=== PATIENT | male | born 1945 | race Caucasian/White ===

== ENCOUNTER 2020-07-23 18:57 | Outpatient (CLI) | payer MEDICARE | END 2020-07-23 18:58 | disposition critical access hospital (66) | LOC: EMS 18:57 | DX: R42 Dizziness and giddiness (principal); M54.5 Low back pain | CPT/HCPCS: A0425; A0427 ==

== ENCOUNTER 2020-07-23 19:38 | Emergency (ER) | payer MEDICARE ==
[2020-07-23] MEDS ORDERED: SODIUM CHLORIDE 0.9% 1,000 ML IV STA (19:50)
[2020-07-23 20:15] LABS: BASOPHILS % (AUTO) 0.6 %; EOSINOPHILS # (AUTO) 0.6 10^3/uL (0.0-0.7); EOSINOPHILS % (AUTO) 10.1 %; HGB - HEMOGLOBIN 10.2 g/dL (14.0-18.0); LYMPHOCYTES # (AUTO) 2.1 10^3/uL (1.5-3.5); LYMPHOCYTES % (AUTO) 33.1 %; MEAN CORPUSCULAR HEMOGLOBIN 30.2 pg (27.0-31.0); MEAN CORPUSCULAR HGB CONC 31.9 g/dL (32.0-36.0); MEAN CORPUSCULAR VOLUME 94.7 fL (80.0-94.0); MEAN PLATELET VOLUME 9.1 fL (7.4-11.4); MONOCYTES # (AUTO) 0.6 10^3/uL (0.0-1.0); MONOCYTES % (AUTO) 9.6 %; NEUTROPHILS # (AUTO) 2.9 10^3/uL (1.5-6.6); NEUTROPHILS % (AUTO) 46.4 %; PLT - PLATELET COUNT 207 10^3/uL (130-450); RED BLOOD COUNT 3.38 10^6/uL (4.70-6.10); RED CELL DISTRIBUTION WIDTH 13.9 % (12.0-15.0); WHITE BLOOD COUNT 6.2 x10^3/uL (4.8-10.8)
--- NOTE | 2020-07-23 20:19 | ED Physician Documentation ---
History of Present Illness - Stated complaint Stated Complaint: HYPOTENSIVE, DIZZY - Chief complaint Chief Complaint: Neuro - History obtained from History obtained from: Patient, EMS - History of Present Illness Timing: How many days ago (several) Pain level max: 0 Pain level now: 0 - Additonal information Additional information: 74-year-old male brought in by EMS today for hypotension and dizziness over the past few days. Worse with standing, better with laying down. He states he had an L1-L4 fusion at [facility] about a month ago. Since that time has had decreased oral intake. Not eating and drinking very much. He received 1 L of normal saline with EMS and feels much better. Blood pressure improved with EMS as well. Initial blood pressure was in the 90s systolic, now in the 120s. No chest pain. No shortness of breath. No fall. No fevers. Review of Systems Ten Systems: 10 systems reviewed and negative Constitutional: denies: Fever, Chills Cardiac: denies: Chest pain / pressure Respiratory: denies: Cough GI: denies: Nausea, Vomiting, Diarrhea : denies: Dysuria, Frequency, Hesitancy Skin: denies: Rash Musculoskeletal: denies: Neck pain, Back pain Neurologic: denies: Headache, Head injury PD PAST MEDICAL HISTORY - Past Medical History Past Medical History: Yes Cardiovascular: Hypertension, High cholesterol Psych: Depression - Present Medications Home Medications: Ambulatory Orders Medication Instructions Recorded Confirmed Albuterol Sulfate [Proair 2 puffs INH Q4H PRN 07/23/20 07/23/20 Digihaler] Cholecalciferol [Vitamin D3] 25 mcg PO DAILY 07/23/20 07/23/20 Ciclesonide [Alvesco] 2 puffs INH BID 07/23/20 07/23/20 Escitalopram Oxalate 10 mg PO DAILY 07/23/20 07/23/20 Fluticasone [Flonase] 2 spray INH DAILY 07/23/20 07/23/20 Hydrochlorothiazide 25 mg PO DAILY 07/23/20 07/23/20 Propranolol [Inderal] 10 mg PO TID PRN 07/23/20 07/23/20 Simvastatin [Zocor] 40 mg PO DAILY 07/23/20 07/23/20 atenoloL [Tenormin] 25 mg PO DAILY 07/23/20 07/23/20 lisinopriL [Lisinopril] 40 mg PO DAILY 07/23/20 07/23/20 - Allergies Allergies/Adverse Reactions: Allergies Allergy/AdvReac Type Severity Reaction Status Date / Time No Known Drug Allergies Allergy Verified 07/23/20 19:47 - Social History Does the pt smoke?: No Smoking Status: Never smoker PD ED PE NORMAL - Vitals Vital signs reviewed: Yes - General General: Alert and oriented X 3, No acute distress, Well developed/nourished - HEENT HEENT: PERRL, Other (dry lips and tongue) - Neck Neck: Supple, no meningeal sign - Cardiac Cardiac: RRR, Strong equal pulses - Respiratory Respiratory: No respiratory distress, Clear bilaterally - Abdomen Abdomen: Soft, Non tender, Non distended - Back Back: No spinal TTP - Derm Derm: Warm and dry - Extremities Extremities: No edema, No calf tenderness / cord - Neuro Neuro: Alert and oriented X 3, 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, No motor deficit, No sensory deficit, Normal speech - Psych Psych: Normal mood, Normal affect Results - Vitals Vitals: Vital Signs - 24 hr 07/23/20 07/23/20 19:48 20:53 Temperature 36.8 C 36.8 C Heart Rate 57 L 56 L Respiratory 19 15 Rate Blood Pressure 123/64 141/68 H O2 Saturation 100 99 Oxygen O2 Source Room air - EKG (time done) 2000 Rate: Rate (enter#) (2000) Rhythm: NSR [place]: Normal Intervals: Prolonged [place] QRS: Normal Ischemia: Normal ST segments, Q waves (III, aVF, V1-2) - Labs Labs: Laboratory Tests 07/23/20 07/23/20 07/23/20 20:00 20:00 20:00 WBC 6.2 RBC 3.38 L Hgb 10.2 L Hct 32.0 L MCV 94.7 H MCH 30.2 MCHC 31.9 L RDW 13.9 Plt Count 207 MPV 9.1 Neut # (Auto) 2.9 Lymph # (Auto) 2.1 [place] # (Auto) 0.6 Eos # (Auto) 0.6 Baso # (Auto) 0.0 Absolute Nucleated RBC 0.00 Nucleated RBC % 0.0 Sodium 137 Potassium 4.4 Chloride 103 Carbon Dioxide 23 Anion Gap 11.0 BUN 30 H Creatinine 1.2 Estimated GFR (MDRD) 60 L Glucose 88 Calcium 8.8 Total Bilirubin 0.4 AST 20 ALT 20 Alkaline Phosphatase 86 Troponin I High Sens 7.1 Total Protein 6.8 Albumin 3.9 Globulin 2.9 Albumin/Globulin Ratio 1.3 PD MEDICAL DECISION MAKING - ED course Complexity details: reviewed results, re-evaluated patient, considered differential, d/w patient ED course: Patient with what appears to be dehydration. Given IV fluids. Hypotension and dizziness resolved. Feels much better. No significant lab abnormalities. Patient and family counseled regarding signs and symptoms for which I believe and urgent re-evaluation would be necessary. Patient with good understanding of and agreement to plan and is comfortable going home at this time This document was made in part using voice recognition software. While efforts are made to proofread this document, sound alike and grammatical errors may occur. Departure - Departure Disposition: 01 Home, Self Care Clinical Impression: Dehydration Condition: Good Instructions: ED Dehydration Follow-Up: Provider,Other [Primary Care Provider] - Within 1 week Comments: You need to increase your water intake at home. Your testing does not show any other acute abnormalities. Return if you worsen.
[2020-07-23 20:33] LABS: ALBUMIN 3.9 g/dL (3.2-5.5); ALBUMIN/GLOBULIN RATIO 1.3 (1.0-2.2); BILIRUBIN,TOTAL 0.4 mg/dL (0.2-1.0); CALCIUM 8.8 mg/dL (8.5-10.3); CREATININE 1.2 mg/dL (0.6-1.2); POTASSIUM 4.4 mmol/L (3.5-5.0); TOTAL PROTEIN 6.8 g/dL (6.7-8.2)
[2020-07-23 20:54] VITALS: BP 141/68
== END 2020-07-23 21:09 | disposition home or self-care (01) ==
LOC: ED 19:38
DX: E86.0 Dehydration (principal); R42 Dizziness and giddiness; I10 Essential (primary) hypertension; Z98.1 Arthrodesis status
CPT/HCPCS: 36415; 80053; 84484; 85025; 93005; 96360; 99282

== ENCOUNTER 2022-02-09 12:35 | Outpatient (CLI) | payer MEDICARE ==
--- NOTE | 2022-02-09 14:10 | DEXA Report ---
PROCEDURE: Dexa Spine and/or Hip INDICATIONS: SCREENING FOR SPINAL SURGERY TECHNIQUE: Dual energy x-ray absorptiometry (DXA) was performed on a [employer] System. Regions measur ed are the AP Spine, femoral neck, and if needed forearm. COMPARISON: None. FINDINGS: Lumbar Spine: Spinal fusion hardware is present. Left Femoral Neck: Bone Mineral Density 1.172 g/cm/cm, T score 0.5, normal Left Hip: Bone Mineral Density 1.102 g/cm/cm,T score 0.2, normal Left forearm: Bone Mineral Density 1.081 g/cm/cm, T score 0.9, normal (T score greater or equal to -1.0: NORMAL) (T score from -1.1 to -2.4: OSTEOPENIA) (T score less than or equal to -2.5 to: OSTEOPOROSIS) Impression: Bone mineral density is within normal limits at the left hip and left forearm. Patients with diagnosis of osteoporosis or osteopenia should have regular bone mineral density assess ment. For those eligible for Medicare, routine testing is allowed once every 2 years. Testing frequ ency can be increased for patients who have rapidly progressing disease or for those who are receivin g medical therapy to restore bone mass. Reviewed by: Gary Milian MD on 02/09/2022 2:09 PM PST Approved by: Gary Milian MD on 02/09/2022 2:09 PM PST Station ID: [id number]
== END 2022-02-09 12:36 | disposition home or self-care (01) ==
LOC: DI 12:35
PROVIDERS: ATTEND Neurological Surgery
DX: Z01.818 Encounter for other preprocedural examination (principal); Z98.1 Arthrodesis status

== ENCOUNTER 2023-06-13 15:25 | Emergency (ER) | payer MEDICARE ==
[2023-06-13 16:42] LABS: BASOPHILS % (AUTO) 0.3 %; EOSINOPHILS # (AUTO) 0.1 10^3/uL (0.0-0.7); EOSINOPHILS % (AUTO) 1.4 %; HCT - HEMATOCRIT 43.6 % (42.0-52.0); HGB - HEMOGLOBIN 13.7 g/dL (14.0-18.0); LYMPHOCYTES # (AUTO) 0.9 10^3/uL (1.5-3.5); LYMPHOCYTES % (AUTO) 9.1 %; MEAN CORPUSCULAR HEMOGLOBIN 32.4 pg (27.0-31.0); MEAN CORPUSCULAR HGB CONC 31.4 g/dL (32.0-36.0); MEAN CORPUSCULAR VOLUME 103.1 fL (80.0-94.0); MEAN PLATELET VOLUME 9.4 fL (7.4-11.4); MONOCYTES # (AUTO) 1.2 10^3/uL (0.0-1.0); MONOCYTES % (AUTO) 11.7 %; NEUTROPHILS # (AUTO) 7.6 10^3/uL (1.5-6.6); NEUTROPHILS % (AUTO) 77.2 %; PLT - PLATELET COUNT 203 10^3/uL (130-450); RED BLOOD COUNT 4.23 10^6/uL (4.70-6.10); RED CELL DISTRIBUTION WIDTH 13.7 % (12.0-15.0); WHITE BLOOD COUNT 9.9 x10^3/uL (4.8-10.8)
--- NOTE | 2023-06-13 16:44 | XRAY Report ---
PROCEDURE: Chest 1V INDICATIONS: Chest pain TECHNIQUE: One view of the chest was acquired. COMPARISON: None. FINDINGS: Surgical changes and devices: Thoracolumbar spine hardware. Lungs and pleura: No pleural effusions or pneumothorax. Lungs are clear. Mediastinum: Mediastinal contours appear normal. Heart size is normal. Bones and chest wall: No suspicious bony lesions. Overlying soft tissues appear unremarkable. IMPRESSION: No acute cardiopulmonary process. Reviewed by: Alfredo Willoughby MD on 06/13/2023 4:43 PM PDT Approved by: Alfredo Willoughby MD on 06/13/2023 4:43 PM PDT Station ID: [id number]
[2023-06-13 16:59] LABS: ALBUMIN 4.2 g/dL (3.2-5.5); ALBUMIN/GLOBULIN RATIO 1.6 (1.0-2.2); BILIRUBIN,TOTAL 1.3 mg/dL (0.2-1.0); CALCIUM 9.1 mg/dL (8.5-10.3); CREATININE 1.4 mg/dL (0.6-1.3); PHOSPHORUS 3.9 mg/dL (2.5-5.0); POTASSIUM 4.8 mmol/L (3.5-4.5); TOTAL PROTEIN 6.8 g/dL (6.4-8.9)
[2023-06-13] MEDS: METOPROLOL 5 MG/5 ML VIAL IVP STA ×2 (17:33→19:00)
[2023-06-13] MEDS ORDERED: iohexoL-300 100 ML VIAL ONE (17:34)
[2023-06-13] MEDS: iohexoL-300 100 ML VIAL IVP ONE (18:21)
[2023-06-13] MEDS: SODIUM CHLORIDE 0.9% 1,000 ML IV ONE (19:00)
--- NOTE | 2023-06-13 19:02 | CT Report ---
PROCEDURE: Soft Tissue Neck W INDICATIONS: DIFFICULTY SWALLOWING, DIMINISHED VOICE CONTRAST: omni 300 100ml TECHNIQUE: After the administration of intravenous contrast, 3.0 mm axial sections acquired from the sella to th e aortic arch. Additional oblique axial 3.0 mm sections acquired through the pharynx. 3 mm thick co jossue reformats were generated. For radiation dose reduction, the following was used: automated exp osure control, adjustment of mA and/or kV according to patient size. COMPARISON: None. FINDINGS: Image quality: Excellent. Lymph nodes: No enlarged lymph nodes seen throughout the neck. Vessels: Visualized vasculature appears patent. Atherosclerotic vascular calcifications. Neck spaces: The oropharynx, nasopharynx, and pharynx demonstrate no mucosal lesions. The vocal cor ds, false vocal cords, pyriform sinuses, epiglottis, vallecula, and tongue base all appear normal. E xtramucosal spaces appear unremarkable. Glands: The parotid and submandibular glands appear normal. The thyroid is normal in size and there are no incidental findings. Miscellaneous: Visualized brain appear normal. Superficial soft tissues appear normal. Bones: No suspicious bony lesions. Degenerative changes of the spine. Visualized sinuses and mastoi ds appear unremarkable. IMPRESSION: No findings to explain patient's symptoms. No masses or enlarged cervical lymphadenopathy. Reviewed by: Alfredo Willoughby MD on 06/13/2023 7:01 PM PDT Approved by: Alfredo Willoughby MD on 06/13/2023 7:01 PM PDT Station ID: [id number]
--- NOTE | 2023-06-13 19:09 | CT Report ---
PROCEDURE: Chest W INDICATIONS: Difficulty swallowing, diminished voice CONTRAST: omni 300 100ml TECHNIQUE: After the administration of intravenous contrast, a CT scan of the chest was performed. Images were recorded and evaluated at appropriate window settings. Reformats: axial MIP of the chest, coronal and sagittal. For radiation dose reduction, the following was used: automated exposure control, adjustme nt of mA and/or kV according to patient size. COMPARISON: None. FINDINGS: Image quality: Diagnostic. Chest wall and lower neck: No thyroid nodule which requires sonographic follow up. No axillary or sup raclavicular adenopathy by size. Lungs and pleura: No consolidation. No pleural effusions. No pneumothorax. No suspicious pulmonary n odules which require follow up. Mediastinum: Heart size is mildly enlarged. Moderate coronary artery calcifications. No pericardial e ffusion. No large vessel abnormality. No mediastinal adenopathy by size criteria. Bones: No aggressive osseous abnormality. Degenerative changes of the spine. Posterior spinal fixatio n extending from T10 into the lumbar spine. Upper Abdomen: Please refer to separately dictated CT of the abdomen and pelvis. IMPRESSION: No cause for patient's symptoms is identified. No acute findings within the chest. Reviewed by: Alfredo Willoughby MD on 06/13/2023 7:07 PM PDT Approved by: Alfredo Willoughby MD on 06/13/2023 7:07 PM PDT Station ID: [id number]
--- NOTE | 2023-06-13 19:12 | CT Report ---
PROCEDURE: Abdomen W INDICATIONS: hiccus CONTRAST: omni 300 100ml TECHNIQUE: CT scan of the abdomen was performed. Intravenous contrast media was administered. Images recorded an d evaluated at appropriate window settings. Reformats: coronal and sagittal. For radiation dose reduc tion, the following was used: automated exposure control, adjustment of mA and/or kV according to pat ient size. COMPARISON: None. FINDINGS: Image quality: Diagnostic. Lower chest: Please refer to separately dictated CT of the chest. Liver: No solid mass. Gallbladder and biliary tree: No radiopaque stones or wall thickening. No biliary dilation. Spleen: No splenomegaly. Pancreas: No pancreatic ductal dilation. Adrenals: No adrenal nodule. Kidneys and ureters: No hydronephrosis. No renal cystic lesion which requires follow up. No solid mas s. Stomach, bowel and peritoneum: No bowel distension. No pathologic free fluid. Diverticulosis without evidence of diverticulitis. Normal appendix. Lymph nodes: No central or retroperitoneal adenopathy. Vessels: No infrarenal aortic aneurysm. Atherosclerotic vascular calcifications. Bones: No aggressive osseous abnormality. Status post thoracolumbar posterior spinal fixation and mul tilevel laminectomy. Other: None. IMPRESSION: 1.No acute findings within the abdomen. 2.Diverticulosis without evidence of acute diverticulitis. Reviewed by: Alfredo Willoughby MD on 06/13/2023 7:11 PM PDT Approved by: Alfredo Willoughby MD on 06/13/2023 7:11 PM PDT Station ID: [id number]
[2023-06-13 19:16] VITALS: BP 140/96
--- NOTE | 2023-06-13 19:59 | ED Physician Documentation ---
PD HPI CHEST PAIN - Stated complaint Stated Complaint: DIFFICULTY SWALLOWING/DEHYDRATED - Chief complaint Chief Complaint: Abd Pain - Additional information Additional information: 77-year-old male presents emergency department for what he describes as difficulty swallowing. Patient says that he has this mid epigastric pain that he says every time he swallows he feels like it just comes right back up. No recent unintentional weight loss. He is not told anything foreign and it did not start happening after he ate something he said he does not member what exactly triggered it but he just feels like he cannot get the sensation to go a way. He also reports that he has been having persistent hiccups that also do not go away. He has history of hypertension and hypercholesterolemia. PD PAST MEDICAL HISTORY - Past Medical History Cardiovascular: Hypertension, High cholesterol Psych: Depression - Past Surgical History Ortho: Hip replacement - Present Medications Home Medications: Ambulatory Orders Medication Instructions Recorded Confirmed Albuterol Sulfate [Proair 2 puffs INH Q4H PRN 07/23/20 07/23/20 Digihaler] Cholecalciferol [Vitamin D3] 25 mcg PO DAILY 07/23/20 07/23/20 Ciclesonide [Alvesco] 2 puffs INH BID 07/23/20 07/23/20 Escitalopram Oxalate 10 mg PO DAILY 07/23/20 07/23/20 Fluticasone [Flonase] 2 spray INH DAILY 07/23/20 07/23/20 Propranolol [Inderal] 10 mg PO TID PRN 07/23/20 07/23/20 Simvastatin [Zocor] 40 mg PO DAILY 07/23/20 07/23/20 atenoloL [Tenormin] 25 mg PO DAILY 07/23/20 07/23/20 hydroCHLOROthiazide 25 mg PO DAILY 07/23/20 07/23/20 [Hydrochlorothiazide] lisinopriL [Lisinopril] 40 mg PO DAILY 07/23/20 07/23/20 Apixaban [Eliquis] 5 mg PO BID 30 Days #60 tab 06/13/23 Baclofen 5 mg PO TID PRN #20 tablet 06/13/23 Metoprolol Succinate [Toprol Xl] 50 mg PO DAILY #30 tablet 06/13/23 - Allergies Allergies/Adverse Reactions: Allergies Allergy/AdvReac Type Severity Reaction Status Date / Time No Known Drug Allergies Allergy Verified 06/13/23 15:36 - Social History Does the pt smoke?: No Smoking Status: Former smoker PD ED PE NORMAL - Vitals Vital signs reviewed: Yes - General General: Alert and oriented X 3, No acute distress, Well developed/nourished - HEENT HEENT: PERRL, EOMI - Neck Neck: No adenopathy - Cardiac Cardiac: Other (Irregularly irregular) - Respiratory Respiratory: Clear bilaterally - Abdomen Abdomen: Normal bowel sounds, Soft, Non tender, Non distended, No organomegaly - Derm Derm: Other (Flushed face) - Psych Psych: Normal mood, Normal affect Results - Vitals Vitals: Vital Signs - 24 hr 06/13/23 06/13/23 06/13/23 15:30 17:07 17:26 Temperature 36.4 C L Heart Rate 59 L 125 H Respiratory 18 16 19 Rate Blood Pressure 110/89 H 170/93 H O2 Saturation 97 100 06/13/23 06/13/23 06/13/23 17:30 17:41 17:57 Temperature Heart Rate 133 H 91 92 Respiratory 17 16 17 Rate Blood Pressure 159/77 H 127/79 125/76 O2 Saturation 97 99 97 06/13/23 06/13/23 06/13/23 18:14 18:30 19:05 Temperature Heart Rate 103 H 112 H 102 H Respiratory 17 19 16 Rate Blood Pressure 126/85 H 145/76 H 134/81 H O2 Saturation 99 97 92 06/13/23 06/13/23 06/13/23 19:06 19:13 19:28 Temperature Heart Rate 108 H 94 92 Respiratory 20 16 Rate Blood Pressure 157/105 H 140/96 H O2 Saturation 98 92 06/13/23 20:27 Temperature Heart Rate 103 H Respiratory 18 Rate Blood Pressure O2 Saturation 95 Oxygen O2 Source Room air - EKG (time done) 1626 EKG releavant findings:: EKG personally interpreted by author of this note. Relevant findings are: Rate: Rate (enter#) (123) Rhythm: Atrial fibrillation [place]: LAD QRS: Normal Ischemia: Normal ST segments - Labs Labs: Laboratory Tests 06/13/23 06/13/23 06/13/23 16:36 16:36 16:36 WBC 9.9 RBC 4.23 L Hgb 13.7 L Hct 43.6 MCV 103.1 H MCH 32.4 H MCHC 31.4 L RDW 13.7 Plt Count 203 MPV 9.4 Neut # (Auto) 7.6 H Lymph # (Auto) 0.9 L [place] # (Auto) 1.2 H Eos # (Auto) 0.1 Baso # (Auto) 0.0 Absolute Nucleated RBC 0.00 Nucleated RBC % 0.0 Sodium 136 Potassium 4.8 H Chloride 105 Carbon Dioxide 21 Anion Gap 10.0 BUN 45 H Creatinine 1.4 H Estimated GFR (MDRD) 49 L Glucose 115 H Calcium 9.1 Phosphorus 3.9 Magnesium 2.0 Total Bilirubin 1.3 H AST 21 ALT 33 Alkaline Phosphatase 50 Troponin I High Sens B-Natriuretic Peptide 305 H Total Protein 6.8 Albumin 4.2 Globulin 2.6 Albumin/Globulin Ratio 1.6 Lipase 58 06/13/23 06/13/23 17:15 19:16 WBC RBC Hgb Hct MCV MCH MCHC RDW Plt Count MPV Neut # (Auto) Lymph # (Auto) [place] # (Auto) Eos # (Auto) Baso # (Auto) Absolute Nucleated RBC Nucleated RBC % Sodium Potassium Chloride Carbon Dioxide Anion Gap BUN Creatinine Estimated GFR (MDRD) Glucose Calcium Phosphorus Magnesium Total Bilirubin AST ALT Alkaline Phosphatase Troponin I High Sens 23.9 H* 17.8 B-Natriuretic Peptide Total Protein Albumin Globulin Albumin/Globulin Ratio Lipase - Rads (name of study) Chest x-ray Relevant Findings:: Final report received, EMP independent interpretation of test, Other (No cardiopulmonary abnormalities no foreign body) Chest CT with con Relevant Findings:: Final report received, EMP independent interpretation of test, Other (No acute abnormalities or findings to explain patient's symptoms) CT soft tissue neck with contrast Relevant Findings:: Final report received, EMP independent interpretation of test, Other (No masses or enlarged cervical lymphadenopathy) Abdominal CT with Relevant Findings:: Final report received, EMP independent interpretation of test, Other (No diaphragmatic abnormalities or findings, diverticulosis without evidence of diverticulitis) PD Medical Decision Making - ED course ED course: 77-year-old male presents emergency department for what he describes as difficulty swallowing and keeping food down. Differentials include but are not limited to esophageal stricture, tumor/mass, esophageal cancer, some other neoplasm. Jamison has not had a very thorough and complete workup. I was originally concerned about possible neoplasm with his complaints of persistent hiccups as well as a sensation that he cannot swallow so CT chest abdomen pelvis as well as CT soft tissue neck was complete without any acute findings or abnormalities that could be contributing to the sensation that he is describing. We completed an EKG and he was found to have new onset atrial fibrillation. Because he was having some chest pain we went ahead and did a troponin level which was initially found to be slightly elevated at 23.9. After receiving a liter of IV fluids A couple doses of IV metoprolol to help with rate control his repeat troponin came back within normal limits, 17.8. He was found to be slightly hyperkalemic potassium 4.8 this is most likely due to him being dry, BUN 45, creatinine 1.4, GFR 49. Again I believe that this is all prerenal. We discussed the possibility of hospitalization for new onset A-fib and acute kidney injury but patient said that he really wanted to try to manage this at home. He was started on Eliquis as well as p.o. metoprolol here in the emergency department and a prescription will be sent to his preferred pharmacy for p.o. metoprolol as well as Eliquis. Patient has close contact with primary care provider and said he will be reaching out to his office first thing tomorrow to ask for cardiology referral and a follow-up appointment he was in formed that he needs to have his kidney function rechecked in a couple days if not the following day for reevaluation. Patient was given very strict return precautions. All questions have been answered to the patient and his and I believe that he is safe for discharge at this point in time. Departure - Departure Disposition: 01 Home, Self Care Clinical Impression: Elevated brain natriuretic peptide (BNP) level, New onset a-fib, Acute kidney injury, Hyperkalemia, Intractable hiccups Condition: Stable Instructions: Atrial Fibrillation Dc, Hyperkalemia Dc, ED Afib Prescriptions: Baclofen 5 mg PO TID PRN #20 tablet PRN Reason: Hiccups Apixaban [Eliquis] 5 mg PO BID 30 Days #60 tab Metoprolol Succinate [Toprol Xl] 50 mg PO DAILY #30 tablet Comments: Thank you for trusting us with your care, we have evaluated you for your symptoms of inability to swallow. We have completed a thorough examination and found that you have new onset atrial fibrillation. We have started you on a blood thinner called Eliquis here in the emergency department you will take this twice a day I have sent this prescription as well as a beta-shamir called metoprolol to [facility] [place]. As we discussed it is very important that you follow-up with your primary care provider to let them know about your new onset atrial fibrillation. You can call medical records and have this emergency department visit information sent over to your primary care provider's office their phone number is [phone]. I would request to get in with your primary care provider soon as possible as w ell as ask for cardiology referral. Your potassium was also found to be slightly elevated this is most likely due to dehydration make sure going home you are drinking plenty of fluids and avoiding high salt diet. Please come back to the emergency department for send develop any chest pain, shortness of breath, heart racing symptoms, or any other concerning symptoms. Please also be aware that know that you are on blood thinners you need to be very very cautious to not fall, if you fall and hit your head you need to come back to the emergency department for further evaluation. Forms: PCP List Discharge Date/Time: 06/13/23 20:27
[2023-06-13] MEDS: APIXABAN 5 MG TABLET PO STA (20:18)
[2023-06-13] MEDS: METOPROLOL SUCCINATE 25 MG TABLET PO SCH (20:19)
[2023-06-13 20:31] VITALS: O2SAT 95
== END 2023-06-13 20:27 | disposition home or self-care (01) ==
LOC: ED 15:25
DX: R79.89 Other specified abnormal findings of blood chemistry (principal); R06.6 Hiccough; E87.5 Hyperkalemia; N17.9 Acute kidney failure, unspecified; I48.91 Unspecified atrial fibrillation; I10 Essential (primary) hypertension; Z87.891 Personal history of nicotine dependence
CPT/HCPCS: 36415; 70491; 71045; 71260; 74160; 80053; 83690; 83735; 83880; 84100; 84484; 85025; 93005; 96374; 96376; 99284; 99285; A9270; Q9967

== ENCOUNTER 2023-06-18 08:19 | Outpatient (CLI) | payer MEDICARE | END 2023-06-18 23:59 | disposition EMS.NT | LOC: EMS 08:19 | DX: R51.9 Headache, unspecified (principal); W18.39XA Other fall on same level, initial encounter; Y92.003 Bedroom of unspecified non-institutional (private) residence as the place of occurrence of the external cause ==

== ENCOUNTER 2023-06-19 09:08 | Outpatient (CLI) | payer MEDICARE | END 2023-06-19 23:59 | disposition EMS.NT | LOC: EMS 09:08 | DX: Z03.89 Encounter for observation for other suspected diseases and conditions ruled out (principal) ==